=== PATIENT | male | born 1965 | race Caucasian/White ===

== ENCOUNTER 2016-12-07 21:56 | Emergency (ER) | payer OTHER ==
[~2016-12-07] VITALS: Ht 177.8 cm; Wt 92.0 kg
[2016-12-07] MEDS ORDERED: QUET100T4 PO (22:21)
[2016-12-07] MEDS ORDERED: CLON0.1T PO (22:21)
[2016-12-07] MEDS ORDERED: ASPIRIN 81 MG TABLET CHEW ONE (22:26)
[2016-12-07] MEDS ORDERED: ASPIRIN 81 MG TABLET CHEW PO ONE (22:30)
[2016-12-07] MEDS ORDERED: PLEASE ENTER ALLERGIES MC SCH ×2 (22:30)
[2016-12-07] MEDS ORDERED: SODIUM CHLORIDE FLUSH 10ML SYR IVF ONE (22:30)
[2016-12-07 22:33] LABS: HEMATOCRIT 43.5 % (39.2-51.8); HEMOGLOBIN 14.4 g/dL (13.7-18.0); WHITE BLOOD COUNT 7.2 x10^3/uL (3.4-10)
[2016-12-07 22:45] LABS: ASPARTATE AMINO TRANSFERASE 9 U/L (15-37); BLOOD UREA NITROGEN 10 mg/dL (7-18)
[2016-12-07 22:52] LABS: IS PT STATUS REG ER OR PRE ER? YES
[2016-12-07] MEDS ORDERED: LORazepam 1MG TABLET PO ONE (23:30)
[2016-12-07] MEDS ORDERED: LORazepam 1MG TABLET ONE (23:31)
[2016-12-07 23:39] VITALS: BP 110/68
== END 2016-12-07 23:54 | disposition home or self-care (01) ==
LOC: ED 23:48
DX: R07.89 Other chest pain (principal); Z87.891 Personal history of nicotine dependence
CPT/HCPCS: 36415; 71010; 80053; 84484; 85025; 85379; 85610; 85730; 93005; 99285